=== PATIENT | male | born 1975 | race Caucasian/White ===

== ENCOUNTER → 2019-08-17 10:44 | Outpatient (CLI) | payer OTHER, SELFPAY ==
--- NOTE | ~2019-08-17 | XR_ITS ---
EXAMINATION: XR lumbar spine 2-3V EXAM DATE: 08/17/2019 10:56 INDICATION: Fall 1.5 weeks ago, persistent low back pain. Bilateral hip pain. TECHNIQUE: Lumber spine frontal, lateral, lateral L5-S1 projections for interpretation. Comparison is made to prior examination from 10/30/2016. FINDINGS: There is 2 to 3 mm retrolisthesis L4 on L5 and L5 on S1 with mild loss of these disc heigh ts. There is mild lumbar facet arthropathy. No spondylolysis. Sacrum, sacroiliac joints, sacral arcua te lines are intact. There are no acute fractures identified. Paraspinal soft tissue is unremarkable. IMPRESSION: 1. Mild lumbar spondylosis. Reviewed, dictated and finalized at location A. IMPRESSION: 1. Mild lumbar spondylosis.
== END ==
PROVIDERS: PCP Nurse Practitioner Family; Visit Provider Nurse Practitioner Family
DX: M47.896 Other spondylosis, lumbar region (principal)
CPT/HCPCS: 72100

== ENCOUNTER 2022-10-15 06:42 | Outpatient (CLI) | payer OTHER, SELFPAY ==
--- NOTE | ~2022-10-15 | CT_ITS ---
EXAMINATION: CT abdomen pelvis w con DATE: 10/15/2022 07:25 INDICATION: Scrotal pain TECHNIQUE: Computed tomography (CT) of the abdomen and pelvis was performed with 100 cc Omnipaque 350 intravenous contrast. The dose-length product was 486.92 mGy-cm. Automated exposure control and iter ative reconstruction technique were employed. COMPARISON: None. FINDINGS: Lung bases are unremarkable. Heart size normal. No significant pleural or pericardial effus ion. No significant vascular abnormality. No lymphadenopathy. Fatty infiltration of the liver. Gallbl adder is present. Spleen, pancreas, adrenal glands and right kidney are unremarkable. There are small subcentimeter hypodensities of the left kidney, too small to characterize, although likely benign. M oderate colonic fecal loading. Nonobstructive bowel pattern. Colonic diverticulosis without evidence for diverticulitis. No ureteral stones or hydronephrosis. No evidence for inguinal hernia. No focal l ytic or blastic lesions. Mild lumbar spondylosis. IMPRESSION: 1. No acute abdominal abnormality. No findings to account for patient's symptoms. Reviewed, dictated and finalized at location B. IMPRESSION: 1. No acute abdominal abnormality. No findings to account for patient's symptom s.
== END 2022-10-15 06:43 | disposition home or self-care (01) ==
PROVIDERS: PCP Family Medicine; Visit Provider Nurse Practitioner Family
DX: N50.82 Scrotal pain (principal); R10.2 Pelvic and perineal pain; N42.81 Prostatodynia syndrome
CPT/HCPCS: 74177; Q9967